=== PATIENT | female | born 1960 | race Two or more races ===

== ENCOUNTER 2019-06-07 07:21 | Outpatient (CLI) | payer OTHER | END 2019-06-07 07:23 | disposition home or self-care (01) | LOC: SONOGRAMA 07:21 | DX: E04.1 Nontoxic single thyroid nodule (principal) ==

== ENCOUNTER 2023-11-10 09:00 | Outpatient (CLI) | payer OTHER | END 2023-11-10 09:02 | disposition home or self-care (01) | LOC: SONOGRAMA 09:00 | PROVIDERS: ATTEND Pathology Anatomic Pathology & Clinical Pathology | DX: D34 Benign neoplasm of thyroid gland (principal); E07.89 Other specified disorders of thyroid; E06.3 Autoimmune thyroiditis; E04.2 Nontoxic multinodular goiter ==

== ENCOUNTER 2025-09-19 08:03 | Outpatient (CLI) | payer OTHER | END 2025-09-19 08:04 | disposition home or self-care (01) | LOC: SONOGRAMA 08:03 | PROVIDERS: ATTEND Pathology Anatomic Pathology & Clinical Pathology | DX: D34 Benign neoplasm of thyroid gland (principal); E07.89 Other specified disorders of thyroid; E04.2 Nontoxic multinodular goiter ==